=== PATIENT | female | born 1965 | race Caucasian/White ===

== ENCOUNTER → 2020-06-23 | Outpatient (CLI) | payer OTHER ==
[~2020-06-23] VITALS: Ht 160 cm; Wt 67.0 kg
[~2020-06-23] MED LIST: PRILOSEC OTC20 MG PO; PROPAFENONE 15150 MG PO; TOPROL XL25 MG PO
--- NOTE | ~2020-06-23 | P ---
[facility] [place] [address] PROCEDURE REPORT Name: ISSA ALCALA Room #: REG [facility]#: [id number] Admission: 06/23/20 Attend Phys: Cuba Meza MD Discharge: Date of : 69 Report #: [id number] THIS REPORT FOR: cc: Physician not on staff Physician not on staff Cuba Meza MD ~ DOC #: [id number] Cuba Meza MD DATE OF SERVICE: 06/23/2020 EP STUDY PREOPERATIVE DIAGNOSIS: Supraventricular tachycardia. POSTOPERATIVE DIAGNOSIS: Supraventricular tachycardia. PROCEDURES PERFORMED: 1. Comprehensive EP study, CPT code 33191. 2. Left atrial pacing recording, CPT code 41613. 3. Programmed stimulation pacing after IV drug infusion, CPT code 70966. 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 She continues to have significant episodes that can last for several minutes despite propafenone therapy. She is here for EP study with possible ablation. ANESTHESIA: The patient underwent MAC anesthesia with no anesthesia related complications. INDICATIONS FOR PROCEDURE: The patient underwent informed consent. We discussed the details of the procedure including the risks, which include but not limited to bleeding, vascular damage, stroke, MN, cardiac perforation as well as damage to the bois forte conduction system requiring permanent pacemaker. She understood these risks and is willing to proceed. DESCRIPTION OF PROCEDURE: The patient was brought to the EP laboratory in fasting and sedated state, prepped and draped in a sterile fashion. I injected lidocaine at the groin region and obtained access to the right femoral vein x3 and left femoral vein x1. I placed 8, 6, and 7 Nepalese short sheath in the right femoral vein and a 6 Nepalese short sheath in the left femoral vein under fluoroscopy, 3 quadripolar catheters were placed at the HRA, His, and RV positions and a decapolar catheter was placed in the coronary sinus for left atrial pacing and recording. A basic EP study was performed. At baseline, the patient was in sinus rhythm. Sinus cycle length of 650 milliseconds, ND interval 175 milliseconds, QRS duration 100 milliseconds, QT interval 370 milliseconds, AH interval 100 milliseconds, and HV interval 42 milliseconds. [facility] [address] [place] [address] PROCEDURE REPORT Name: ISSA ALCALA Room #: REG [facility]#: [id number] Admission: 06/23/20 Attend Phys: Cuba Meza MD Discharge: Date of : 69 Report #: [id number] Atrial pacing was performed and AV block was noted at 300 milliseconds. Atrial ERP was noted at 250 milliseconds at a [address] cycle length. There was no evidence of any jumps or AV emerson echos. Ventricular pacing was performed and VA conduction was both midline and decremental. VA block was noted at 300 milliseconds. Ventricular ERP was noted at 200 milliseconds at a [address] cycle length. Double atrial extrastimuli were delivered and no SVT was induced. Next, Isoproterenol infusion was started at 2 mcg per minute. AV block was noted at 250 milliseconds. Atrial ERP was noted at 200 milliseconds at a [address] cycle length[address] Double AV emerson extrastimuli were delivered and again no SVT was induced. There are occasional single AV emerson echoes noted. Next, ventricular pacing was performed and VA block was less than 250 milliseconds. Double ventricular extrastimuli were delivered and no SVT was induced. I tested on ____ Isoproterenol for approximately 30 minutes with aggressive atrial and ventricular pacing maneuvers and we cannot induce any SVT. Isoproterenol infusion was decreased to 1 mcg per minute. AV block was noted 240 milliseconds. Double atrial extrastimuli on 1 or 2 occasions resulted in some intraatrial reentry or atrial tachycardia lasting about 3 beats. These were highly irregular with different activation patterns. It is not something that we could easily map. Isoproterenol was turned off and we continued testing. Atrial ERP was noted 230 milliseconds of [address] cycle length, double atrial extrastimuli were delivered and occasional single AV emerson echoes were noted and AV block was around 310 milliseconds. As such, we tested for an hour and 15 minutes on varying doses of Isoproterenol and there was no evidence of an accessory pathway nor was there a sufficient evidence to suggest AV emerson reentrant tachycardia. I performed aggressive atrial pacing down to 210 milliseconds and could not induce any atrial tachycardia, atrial fibrillation or even any atrial flutter. As such, the procedure was concluded. The patient was in sinus rhythm. Sinus cycle length of 535 milliseconds, ND interval 185 milliseconds, QRS duration 90 milliseconds, QT interval 360 milliseconds. As such, catheters and sheaths were pulled and hemostasis was obtained. The patient awoke neurologically and hemodynamically intact. No complications. No significant bleeding. CONCLUSIONS: 1. Comprehensive EP study with no inducible arrhythmias despite Isoproterenol infusion. 2. Normal SA emerson function. 3. Normal AV emerson function. 4. Normal His-Purkinje function. RECOMMENDATIONS: Recommend continuing to treat her atrial tachycardia with beta-ashwin and antiarrhythmic drug therapy. [facility] [address] [place] [address] PROCEDURE REPORT Name: ISSA ALCALA Room #: REG [facility]#: [id number] Admission: 06/23/20 Attend Phys: Cuba Meza MD Discharge: Date of : 69 Report #: [id number] MD LIAT Guerra/LOWELL/MISAEL By: [id number] Cuba Meza MD /nt
[2020-06-23 07:26] VITALS: BP 119/80
[2020-06-23 07:46] LABS: ABSOLUTE NEUTROPHILS 8.3 thou/uL (1.4-8.2); BASOPHILS 0.3 % (0.0-2.0); EOSINOPHILS 0.6 % (0.0-3.0); HEMATOCRIT 36.8 % (37.0-47.0); HEMOGLOBIN 11.9 gm/dL (12.0-15.0); LYMPHOCYTES 24.2 % (24.0-44.0); MCH 26.9 pg (26.0-34.0); MCHC 32.2 g/dL (28.0-37.0); MCV 83.5 fL (80.0-100.0); MONOCYTES 5.4 % (1.0-8.0); PLATELET COUNT 350 thou/uL (150-400); POLYS 69.5 % (36.0-66.0); RBC 4.41 mil/uL (4.20-5.00); RDW 14.6 % (10.5-14.5)
[2020-06-23 07:48] LABS: APTT 23.7 Seconds (24.5-32.8); INR 0.9; PROTIME 9.5 Seconds (9.3-11.4)
[2020-06-23 07:52] LABS: CALCIUM 9.5 mg/dL (8.5-10.1); CREATININE 0.8 mg/dL (0.6-1.0); POTASSIUM 3.6 mmol/L (3.5-5.1)
[2020-06-23 07:55] LABS: TOTAL BILIRUBIN 0.4 mg/dL (0.2-1.0); TOTAL PROTEIN 7.3 g/dL (6.4-8.2)
== END | disposition home or self-care (01) ==
LOC: CATH 06:23
PROVIDERS: ATTEND Internal Medicine Cardiovascular Disease
DX: I47.1 Supraventricular tachycardia (principal); R00.2 Palpitations; K21.9 Gastro-esophageal reflux disease without esophagitis; Z98.890 Other specified postprocedural states; Z79.899 Other long term (current) drug therapy; Z90.49 Acquired absence of other specified parts of digestive tract; Z90.710 Acquired absence of both cervix and uterus; Z82.49 Family history of ischemic heart disease and other diseases of the circulatory system; Z87.891 Personal history of nicotine dependence; Z88.8 Allergy status to other drugs, medicaments and biological substances
CPT/HCPCS: 62110; 62900; 70005